=== PATIENT | male | born 1995 | race Caucasian/White ===

== ENCOUNTER 2017-01-22 15:39 | Emergency (ER) | payer OTHER ==
[~2017-01-22] VITALS: Ht 182.9 cm; Wt 97.5 kg
--- NOTE | ~2017-01-22 | CR63 ---
[facility] A Service of [facility] & [facility] RADIOLOGY TEXT RESULTS PATIENT: TORREY CAMPBELL III LOCATION: [facility] : [birth year] UNIT #: [id number] AGE: [address]: STEPHANI LEAL SEX: M ORDER DR: [id number] [facility] [address] [place], [place] [address] [id number] E MR#: [id number] Acc #: [id number] NAME: TORREY CAMPBELL III : 1995 SEX: M STUDY DATE/TIME: 01/22/2017 16:26 UNIT: [facility] ROOM: STUDY DESCRIPTION: CR Chest 2 View Attending Physician: Stephani Leal Aprn Ordering Physician: Stephani Leal Aprn Primary Care Physician: No Primary Care Physician MEDICAL IMAGING REPORT This report is preliminary unless electronic signature is present EXAM Two-view chest, 01/22/2017. HISTORY 21-year-old male with cough and congestion beginning today. COMPARISON Chest, 08/06/2016. FINDINGS Two views of the chest demonstrate clear lungs. No pleural effusion or pneumothorax. Heart size and mediastinum are normal. Pulmonary vasculature normal. IMPRESSION No acute cardiopulmonary findings. Dictated by... Ángel Joseph M.D. THIS IS AN ELECTRONICALLY VERIFIED REPORT Ángel Joseph M.D. at 01/23/2017 10:50 AM YANY/jaja TD: 01/23/2017 09:43 JOB #: [id number] MEDICAL IMAGING REPORT Page 1 of 1 COPY
[~2017-01-22 15:39] MED LIST: ADVAIR 2501 DISK W/D PO; ALBUTEROL 0.5ML INH; ALBUTEROL MININEB NEB; ALBUTEROL17 GM INH; ALBUTEROL17 GM NEB; AMOXICILLIN PO; AMOXICILLIN500 M1 PO; ATARAX PO; AUGMENTIN PO; AZITHROMYCIN500 MG PO; BENADRYL25 M1 PO; BENZONATATE PO; CLARITIN10 MG PO; CORTISPORI10 ML OTIC AD; COUGHTAB200 MG PO; ELIMITE60 GM TOP; KEFLEX500 MG PO; MEDROL PO; MEDROL4 MG/DOSE- PO; MOTRIN400 MG PO; NO MEDICATIONS; PERMETHRIN60 GM TP; PHENERGAN VC W120 M1 PO; PREDNISONE; PREDNISONE PO; PREDNISONE10 MG PO; PREDNISONE50 MG PO; ROBITUSSIN A-C-S1 ML DOB; RONDEC-DM ORAL30 ML PO; RONDEC-DM SYRU120 ML PO; SEROQUEL PO; SEROQUEL XR200 MG PO; SINGULAIR PO; SYMBICORT INH; TESSALON200 MG PO; ZITHROMAX PO; ZYRTEC10 M1 PO
== END 2017-01-22 17:17 | disposition home or self-care (01) ==
LOC: CFTX 15:39 → CED 15:39 → CFTX 16:21
DX: J02.0 Streptococcal pharyngitis (principal); M79.1 Myalgia; J45.909 Unspecified asthma, uncomplicated; Z79.2 Long term (current) use of antibiotics; Z91.040 Latex allergy status
CPT/HCPCS: 71020; 87880; 94640; 96372; 99283; J0561